=== PATIENT | female | born 2000 | race Asian ===

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

== ENCOUNTER 2022-07-14 23:38 | Emergency (ER) | payer OTHER ==
[~2022-07-14] VITALS: Ht 154.9 cm; Wt 65.8 kg
[2022-07-14 23:38] VITALS: BP 147/78; TEMP 98.9
== END 2022-07-15 02:00 | disposition home or self-care (01) ==
LOC: ED 23:38
PROC: 0HQGXZZ Repair Left Hand Skin, External Approach (ICD-10-PCS; principal; 2022-07-14)
DX: S61.012A Laceration without foreign body of left thumb without damage to nail, initial encounter (principal); W26.0XXA Contact with knife, initial encounter
CPT/HCPCS: 90471; 90715; 99282